=== PATIENT | male | born 1985 | race Hispanic/Latino ===

== ENCOUNTER 2023-03-25 23:03 | Inpatient (IN) | payer OTHER ==
[~2023-03-25] VITALS: Ht 172.7 cm; Wt 101.7 kg
[2023-03-25 23:57] LABS: BASOPHILS # (AUTO) 0.05 K/uL (0.00-0.20); BASOPHILS % (AUTO) 0.4 % (0.0-5.0); EOSINOPHILS # (AUTO) 0.22 K/uL (0.00-0.70); EOSINOPHILS % (AUTO) 1.9 % (0.0-8.0); HEMATOCRIT 42.7 % (42-54); IMMATURE GRANULOCYTE ABSOLUTE 0.12 K/uL (0-1); LYMPHOCYTES # (AUTO) 1.8 K/uL (1.0-4.8); MEAN CORPUSCULAR HEMOGLOBIN 31.2 pg (27.0-33.0); MEAN CORPUSCULAR HGB CONC 35.6 g/dL (32.0-36.0); MEAN CORPUSCULAR VOLUME 87.7 fL (79-99); MONOCYTES % (AUTO) 8.1 % (3.0-13.0); NEUTROPHILS # (AUTO) 8.7 K/uL (1.8-7.7); NEUTROPHILS % (AUTO) 73.6 % (40.0-77.0); PLATELET COUNT (AUTO) 261 K/uL (130-400); RED BLOOD CELL COUNT(AUTO) 4.87 MIL/uL (4.50-6.20); RED CELL DISTRIBUTION WIDTH 12.1 % (11.0-15.5); WHITE BLOOD COUNT (AUTO) 11.8 K/uL (4.8-10.8)
[2023-03-26 00:07] LABS: INR 0.93 (0.85-1.15); PROTHROMBIN TIME 10.1 SEC (9.6-11.6)
[2023-03-26 00:09] LABS: PARTIAL THROMBOPLASTIN TIME 26.1 SEC (26.3-35.5)
[2023-03-26 00:40] LABS: APPEARANCE,URINE CLEAR (CLEAR); BILIRUBIN,URINE NEGATIVE (NEGATIVE); COLOR,URINE LIGHT-YELLOW (YELLOW); GLUCOSE, URINE (UA) >=1000 mg/dL (NEGATIVE); KETONES,URINE NEGATIVE (NEGATIVE); LEUKOCYTE ESTERASE ,URINE NEGATIVE Leu/uL (NEGATIVE); NITRATE,URINE NEGATIVE (NEGATIVE); OCCULT BLOOD,URINE NEGATIVE (NEGATIVE); PH,URINE 6.5 (5.0-8.0); PROTEIN,URINE NEGATIVE (NEGATIVE); UROBILINOGEN,URINE 3 mg/dL (0.2-1.0)
[2023-03-26 00:41] LABS: ALBUMIN 3.6 g/dL (3.5-5.0); BILIRUBIN,TOTAL 0.9 mg/dL (0.2-1.0); CREATININE 1.1 mg/dL (0.5-1.5); POTASSIUM 3.7 mmol/L (3.5-5.1); TOTAL PROTEIN, SERUM 7.4 g/dL (6.0-8.3)
[2023-03-26 00:47] LABS: ADD UA MICROSCOPIC YES
[2023-03-26 00:57] LABS: BACTERIA,URINE None Seen /HPF (None Seen); RBC,URINE 0-1 /HPF (0-1); SQUAMOUS EPITHELIAL CELL,UR None Seen /HPF (0-2); WBC,URINE 0-1 /HPF (0-1)
[2023-03-26] MEDS ORDERED: MORPHINE 4 MG SYG IVP ONE (02:00)
[2023-03-26] MEDS ORDERED: VANCOMYCIN KIT 1 GM/250 ML IV.KIT IV ONE (02:00)
[2023-03-26] MEDS ORDERED: MORPHINE 2 MG SYG ONE (02:10)
[2023-03-26] MEDS ORDERED: VANCOMYCIN PROTOCOL PER PHARMACY IV PRN (02:30)
[2023-03-26] MEDS ORDERED: ACETAMINOPHEN 325 MG TAB PO PRN ×2 (02:30)
[2023-03-26] MEDS ORDERED: LACTULOSE 20 GM/30 ML UDCUP PO PRN (02:30)
[2023-03-26] MEDS: CEFEPIME HCL 2 GM VIAL IVPB SCH ×3 (03:30→18:18)
[2023-03-26] MEDS: 0.9%NACL 1000ML 1,000 ML IV SCH ×3 (03:30→22:34)
[2023-03-26] MEDS: INSULIN HUMULIN R 100 UNIT/ML 3ML SQ SCH ×4 (07:30→19:10)
[2023-03-26] MEDS: FAMOTIDINE 20MG TAB PO SCH ×2 (10:21→19:06)
[2023-03-26] MEDS: MORPHINE 2 MG SYG IV PRN ×2 (11:09→18:01)
[2023-03-26] MEDS: VANCOMYCIN 1.5 GM/250 ML BAG 250 ML IV SCH (14:49)
[2023-03-26] MEDS: ONDANSETRON 4MG INJ IV PRN (18:01)
[2023-03-26] MEDS ORDERED: IOHEXOL-350 75 ML VIAL IV ONE (20:22)
[2023-03-26 20:50] VITALS: BP 139/84; PULSE 106; RESP 20
[2023-03-26] MEDS: NAPROXEN 500 MG TABLET PO SCH (21:02)
[2023-03-26 22:00] VITALS: O2SAT 100
[2023-03-27] VITALS (8 sets, daily range): BP systolic 117–140; BP diastolic 75–94; PULSE 89–97; RESP 18–20; O2SAT 97
[2023-03-27] MEDS: CEFEPIME HCL 2 GM VIAL IVPB SCH ×3 (02:20→18:15)
[2023-03-27] MEDS: VANCOMYCIN 1.5 GM/250 ML BAG 250 ML IV SCH (03:00)
[2023-03-27] MEDS: MORPHINE 2 MG SYG IV PRN ×3 (05:54→18:15)
[2023-03-27] MEDS: INSULIN HUMULIN R 100 UNIT/ML 3ML SQ SCH ×4 (07:30→20:58)
[2023-03-27] MEDS: 0.9%NACL 1000ML 1,000 ML IV SCH ×2 (08:48→20:43)
[2023-03-27] MEDS: NAPROXEN 500 MG TABLET PO SCH ×2 (08:49→20:39)
[2023-03-27] MEDS: FAMOTIDINE 20MG TAB PO SCH ×2 (08:49→20:39)
[2023-03-27] MEDS: VANCOMYCIN 2GM/500 ML BAG 500 ML IV SCH (16:22)
[2023-03-28] MEDS: CEFEPIME HCL 2 GM VIAL IVPB SCH ×3 (02:23→18:56)
[2023-03-28] MEDS: VANCOMYCIN 2GM/500 ML BAG 500 ML IV SCH ×2 (03:16→16:08)
[2023-03-28 03:35] VITALS: BP 123/76; PULSE 87; RESP 16
[2023-03-28] MEDS: 0.9%NACL 1000ML 1,000 ML IV SCH ×2 (04:28→14:30)
[2023-03-28 05:26] LABS: BASOPHILS # (AUTO) 0.04 K/uL (0.00-0.20); BASOPHILS % (AUTO) 0.4 % (0.0-5.0); EOSINOPHILS # (AUTO) 0.39 K/uL (0.00-0.70); EOSINOPHILS % (AUTO) 4.3 % (0.0-8.0); HEMATOCRIT 37.2 % (42-54); IMMATURE GRANULOCYTE ABSOLUTE 0.11 K/uL (0-1); LYMPHOCYTES # (AUTO) 1.7 K/uL (1.0-4.8); LYMPHOCYTES % (AUTO) 18.8 % (21.0-51.0); MEAN CORPUSCULAR HEMOGLOBIN 31.3 pg (27.0-33.0); MEAN CORPUSCULAR HGB CONC 36.6 g/dL (32.0-36.0); MEAN CORPUSCULAR VOLUME 85.7 fL (79-99); MONOCYTES # (AUTO) 0.8 K/uL (0.1-1.0); MONOCYTES % (AUTO) 8.6 % (3.0-13.0); NEUTROPHILS % (AUTO) 66.7 % (40.0-77.0); PLATELET COUNT (AUTO) 251 K/uL (130-400); RED BLOOD CELL COUNT(AUTO) 4.34 MIL/uL (4.50-6.20); RED CELL DISTRIBUTION WIDTH 11.9 % (11.0-15.5)
[2023-03-28 05:33] LABS: HEMOGLOBIN A1C 10.7 % (4.0-6.0)
[2023-03-28 06:04] LABS: ALBUMIN 2.9 g/dL (3.5-5.0); BILIRUBIN,TOTAL 0.6 mg/dL (0.2-1.0); CREATININE 0.9 mg/dL (0.5-1.5); MAGNESIUM 1.7 mg/dL (1.80-2.40); POTASSIUM 3.8 mmol/L (3.5-5.1); TOTAL PROTEIN, SERUM 6.2 g/dL (6.0-8.3)
[2023-03-28] MEDS: INSULIN HUMULIN R 100 UNIT/ML 3ML SQ SCH ×4 (06:23→20:42)
[2023-03-28] MEDS ORDERED: METF-444 PO (07:21)
[2023-03-28] MEDS ORDERED: AMOX1TAB16 PO (07:21)
[2023-03-28] MEDS ORDERED: GLIM4TAB36 PO (07:21)
[2023-03-28 08:00] VITALS: BP 133/76; PULSE 98; RESP 20
[2023-03-28] MEDS: NAPROXEN 500 MG TABLET PO SCH ×2 (08:26→20:39)
[2023-03-28] MEDS: MORPHINE 2 MG SYG IV PRN (08:35)
[2023-03-28] MEDS: FAMOTIDINE 20MG TAB PO SCH ×2 (10:31→20:39)
[2023-03-28 12:00] VITALS: BP 133/81; PULSE 83; RESP 20
[2023-03-28 16:00] VITALS: BP 152/94; PULSE 83; RESP 18
[2023-03-28 20:00] VITALS: BP 156/91; PULSE 91; RESP 20; O2SAT 100
[2023-03-28 23:32] VITALS: BP 141/78; PULSE 83; RESP 19
[2023-03-29] VITALS (31 sets, daily range): BP systolic 85–170; BP diastolic 35–97; PULSE 71–102; RESP 12–20; O2SAT 97–100
[2023-03-29] MEDS: 0.9%NACL 1000ML 1,000 ML IV SCH (00:30)
[2023-03-29] MEDS: CEFEPIME HCL 2 GM VIAL IVPB SCH ×3 (02:16→19:27)
[2023-03-29 05:00] LABS: SARS-CoV-2, RNA, NAAT NEGATIVE SARS CoV-2 (NEGATIVE)
[2023-03-29] MEDS: MORPHINE 2 MG SYG IV PRN (06:16)
[2023-03-29] MEDS: INSULIN HUMULIN R 100 UNIT/ML 3ML SQ SCH ×4 (06:20→20:49)
[2023-03-29] MEDS: NAPROXEN 500 MG TABLET PO SCH ×2 (08:48→20:48)
[2023-03-29] MEDS: VANCOMYCIN 1.5 GM/250 ML BAG 250 ML IV SCH ×2 (08:49→17:44)
[2023-03-29] MEDS: FAMOTIDINE 20MG TAB PO SCH ×2 (09:00→20:48)
[2023-03-29] MEDS ORDERED: MIDAZOLAM HCL 1 MG/ML 2ML VIAL ONE (14:29)
[2023-03-29] MEDS ORDERED: LIDOCAINE PF 100MG/5ML (2%) SYRINGE 5ML ONE (14:29)
[2023-03-29] MEDS ORDERED: FENTANYL CITRATE PF 50 MCG/1 ML 2ML VIAL ONE ×2 (14:30→15:03)
[2023-03-29] MEDS ORDERED: PROPOFOL 10 MG/ML 20ML VIAL IV ONE (14:30)
[2023-03-29] MEDS ORDERED: KETOROLAC 30MG VIAL (30MG/ML) ONE (15:02)
[2023-03-29] MEDS ORDERED: ONDANSETRON 4MG INJ ONE (15:02)
[2023-03-29] MEDS ORDERED: CEFAZOLIN SODIUM 1 GM VIAL ONE (15:15)
[2023-03-29] MEDS ORDERED: CEFAZOLIN SODIUM 1 GM VIAL IVPB ONE (15:15)
[2023-03-29] MEDS ORDERED: MEPERIDINE-PF 25 MG/ML SYG ONE (16:35)
[2023-03-29] MEDS: ONDANSETRON 4MG INJ IV PRN (17:42)
[2023-03-30] VITALS (8 sets, daily range): BP systolic 123–145; BP diastolic 71–88; PULSE 76–86; RESP 20; O2SAT 97–99
[2023-03-30] MEDS: VANCOMYCIN 1.5 GM/250 ML BAG 250 ML IV SCH ×4 (00:50→23:07)
[2023-03-30] MEDS: CEFEPIME HCL 2 GM VIAL IVPB SCH ×3 (02:24→18:31)
[2023-03-30 04:50] LABS: BASOPHILS # (AUTO) 0.04 K/uL (0.00-0.20); BASOPHILS % (AUTO) 0.4 % (0.0-5.0); EOSINOPHILS # (AUTO) 0.35 K/uL (0.00-0.70); EOSINOPHILS % (AUTO) 3.3 % (0.0-8.0); HEMATOCRIT 35.6 % (42-54); IMMATURE GRANULOCYTE ABSOLUTE 0.18 K/uL (0-1); LYMPHOCYTES # (AUTO) 1.9 K/uL (1.0-4.8); LYMPHOCYTES % (AUTO) 18.3 % (21.0-51.0); MEAN CORPUSCULAR HGB CONC 36.8 g/dL (32.0-36.0); MEAN CORPUSCULAR VOLUME 84.2 fL (79-99); MONOCYTES # (AUTO) 0.8 K/uL (0.1-1.0); MONOCYTES % (AUTO) 7.6 % (3.0-13.0); NEUTROPHILS # (AUTO) 7.3 K/uL (1.8-7.7); NEUTROPHILS % (AUTO) 68.7 % (40.0-77.0); PLATELET COUNT (AUTO) 249 K/uL (130-400); RED BLOOD CELL COUNT(AUTO) 4.23 MIL/uL (4.50-6.20); RED CELL DISTRIBUTION WIDTH 11.9 % (11.0-15.5); WHITE BLOOD COUNT (AUTO) 10.6 K/uL (4.8-10.8)
[2023-03-30 05:10] LABS: CREATININE 0.9 mg/dL (0.5-1.5); MAGNESIUM 1.8 mg/dL (1.80-2.40); POTASSIUM 3.2 mmol/L (3.5-5.1)
[2023-03-30] MEDS: INSULIN HUMULIN R 100 UNIT/ML 3ML SQ SCH ×4 (06:33→21:31)
[2023-03-30] MEDS: FAMOTIDINE 20MG TAB PO SCH ×2 (09:01→21:29)
[2023-03-30] MEDS: NAPROXEN 500 MG TABLET PO SCH ×2 (09:01→21:29)
[2023-03-30] MEDS ORDERED: POTASSIUM CHLORIDE 20MEQ/100ML 100 ML IV PRN (11:30)
[2023-03-30] MEDS ORDERED: POTASSIUM CHLORIDE 10% ELIXIR 20 MEQ/15 ML UDCUP PO PRN (11:30)
[2023-03-30] MEDS: KCL 20 MEQ ERTAB PO PRN (11:43)
[2023-03-31] MEDS: VANCOMYCIN 1.5 GM/250 ML BAG 250 ML IV SCH ×2 (07:00→17:51)
[2023-03-31] MEDS: INSULIN HUMULIN R 100 UNIT/ML 3ML SQ SCH ×4 (07:30→21:18)
[2023-03-31 08:00] VITALS: BP 139/78; PULSE 74; RESP 17; O2SAT 99
[2023-03-31] MEDS: FAMOTIDINE 20MG TAB PO SCH ×2 (09:00→21:10)
[2023-03-31] MEDS: NAPROXEN 500 MG TABLET PO SCH ×2 (09:00→21:10)
[2023-03-31 10:29] LABS: CREATININE 0.9 mg/dL (0.5-1.5); MAGNESIUM 1.8 mg/dL (1.80-2.40); POTASSIUM 3.7 mmol/L (3.5-5.1)
[2023-03-31] MEDS: CEFEPIME HCL 2 GM VIAL IVPB SCH ×2 (10:53→21:10)
[2023-03-31 12:00] VITALS: BP 144/84; PULSE 81; RESP 18
[2023-03-31 16:00] VITALS: BP 141/78; PULSE 78; RESP 16
[2023-03-31 16:42] LABS: BASOPHILS # (AUTO) 0.07 K/uL (0.00-0.20); BASOPHILS % (AUTO) 0.8 % (0.0-5.0); EOSINOPHILS # (AUTO) 0.58 K/uL (0.00-0.70); EOSINOPHILS % (AUTO) 6.3 % (0.0-8.0); HEMATOCRIT 40.8 % (42-54); IMMATURE GRANULOCYTE ABSOLUTE 0.34 K/uL (0-1); LYMPHOCYTES # (AUTO) 2.4 K/uL (1.0-4.8); LYMPHOCYTES % (AUTO) 25.6 % (21.0-51.0); MEAN CORPUSCULAR HEMOGLOBIN 31.1 pg (27.0-33.0); MEAN CORPUSCULAR HGB CONC 36.3 g/dL (32.0-36.0); MEAN CORPUSCULAR VOLUME 85.7 fL (79-99); MONOCYTES # (AUTO) 0.9 K/uL (0.1-1.0); MONOCYTES % (AUTO) 9.6 % (3.0-13.0); PLATELET COUNT (AUTO) 250 K/uL (130-400); RED BLOOD CELL COUNT(AUTO) 4.76 MIL/uL (4.50-6.20); RED CELL DISTRIBUTION WIDTH 11.9 % (11.0-15.5); WHITE BLOOD COUNT (AUTO) 9.3 K/uL (4.8-10.8)
[2023-03-31] MEDS ORDERED: MORPHINE 2 MG SYG ONE (17:04)
[2023-03-31] MEDS: MORPHINE 2 MG SYG IVP PRN (17:05)
[2023-03-31 20:00] VITALS: BP 146/78; PULSE 90; RESP 19
[2023-04-01] VITALS (8 sets, daily range): BP systolic 121–142; BP diastolic 71–92; PULSE 75–97; RESP 18–20; O2SAT 100
[2023-04-01] MEDS: CEFEPIME HCL 2 GM VIAL IVPB SCH ×3 (01:48→18:07)
[2023-04-01] MEDS: VANCOMYCIN 1.5 GM/250 ML BAG 250 ML IV SCH ×2 (02:55→10:30)
[2023-04-01 04:59] LABS: BASOPHILS # (AUTO) 0.05 K/uL (0.00-0.20); BASOPHILS % (AUTO) 0.6 % (0.0-5.0); EOSINOPHILS # (AUTO) 0.44 K/uL (0.00-0.70); EOSINOPHILS % (AUTO) 5.6 % (0.0-8.0); LYMPHOCYTES # (AUTO) 1.8 K/uL (1.0-4.8); LYMPHOCYTES % (AUTO) 23.1 % (21.0-51.0); MEAN CORPUSCULAR HEMOGLOBIN 30.6 pg (27.0-33.0); MEAN CORPUSCULAR VOLUME 84.9 fL (79-99); MONOCYTES # (AUTO) 0.7 K/uL (0.1-1.0); MONOCYTES % (AUTO) 8.4 % (3.0-13.0); NEUTROPHILS # (AUTO) 4.7 K/uL (1.8-7.7); NEUTROPHILS % (AUTO) 59.7 % (40.0-77.0); PLATELET COUNT (AUTO) 285 K/uL (130-400); RED BLOOD CELL COUNT(AUTO) 4.71 MIL/uL (4.50-6.20); RED CELL DISTRIBUTION WIDTH 11.9 % (11.0-15.5); WHITE BLOOD COUNT (AUTO) 7.8 K/uL (4.8-10.8)
[2023-04-01 05:12] LABS: CREATININE 0.9 mg/dL (0.5-1.5); MAGNESIUM 1.8 mg/dL (1.80-2.40); POTASSIUM 3.7 mmol/L (3.5-5.1)
[2023-04-01] MEDS: INSULIN HUMULIN R 100 UNIT/ML 3ML SQ SCH ×4 (06:43→20:15)
[2023-04-01] MEDS: FAMOTIDINE 20MG TAB PO SCH ×2 (09:03→20:13)
[2023-04-01] MEDS: NAPROXEN 500 MG TABLET PO SCH ×2 (09:03→20:13)
[2023-04-01] MEDS: KCL 20 MEQ ERTAB PO PRN (09:04)
[2023-04-02] VITALS (8 sets, daily range): BP systolic 119–150; BP diastolic 67–84; PULSE 72–99; RESP 16–20; O2SAT 100
[2023-04-02] MEDS: CEFEPIME HCL 2 GM VIAL IVPB SCH ×3 (01:50→16:54)
[2023-04-02 05:27] LABS: BASOPHILS # (AUTO) 0.07 K/uL (0.00-0.20); BASOPHILS % (AUTO) 0.6 % (0.0-5.0); EOSINOPHILS # (AUTO) 0.56 K/uL (0.00-0.70); EOSINOPHILS % (AUTO) 5.2 % (0.0-8.0); HEMATOCRIT 41.3 % (42-54); LYMPHOCYTES # (AUTO) 2.2 K/uL (1.0-4.8); LYMPHOCYTES % (AUTO) 20.2 % (21.0-51.0); MEAN CORPUSCULAR HEMOGLOBIN 30.5 pg (27.0-33.0); MEAN CORPUSCULAR HGB CONC 36.1 g/dL (32.0-36.0); MEAN CORPUSCULAR VOLUME 84.5 fL (79-99); MONOCYTES # (AUTO) 1.1 K/uL (0.1-1.0); NEUTROPHILS # (AUTO) 6.5 K/uL (1.8-7.7); NEUTROPHILS % (AUTO) 60.3 % (40.0-77.0); PLATELET COUNT (AUTO) 267 K/uL (130-400); RED BLOOD CELL COUNT(AUTO) 4.89 MIL/uL (4.50-6.20); RED CELL DISTRIBUTION WIDTH 11.9 % (11.0-15.5); WHITE BLOOD COUNT (AUTO) 10.8 K/uL (4.8-10.8)
[2023-04-02 05:48] LABS: MAGNESIUM 1.7 mg/dL (1.80-2.40); POTASSIUM 4.1 mmol/L (3.5-5.1); VANCOMYCIN LEVEL 7.4 mcg/mL (18.0-26.0)
[2023-04-02] MEDS: INSULIN HUMULIN R 100 UNIT/ML 3ML SQ SCH ×4 (06:18→20:19)
[2023-04-02] MEDS: FAMOTIDINE 20MG TAB PO SCH ×2 (08:44→20:19)
[2023-04-02] MEDS: NAPROXEN 500 MG TABLET PO SCH ×2 (08:44→20:19)
[2023-04-02] MEDS: METRONIDAZOLE 500 MG TABLET PO SCH ×2 (16:00→23:56)
[2023-04-03] VITALS (8 sets, daily range): BP systolic 117–138; BP diastolic 69–88; PULSE 80–91; RESP 16–19; O2SAT 97–99
[2023-04-03] MEDS: CEFEPIME HCL 2 GM VIAL IVPB SCH ×3 (02:05→18:27)
[2023-04-03 05:12] LABS: BASOPHILS # (AUTO) 0.05 K/uL (0.00-0.20); BASOPHILS % (AUTO) 0.5 % (0.0-5.0); EOSINOPHILS # (AUTO) 0.46 K/uL (0.00-0.70); EOSINOPHILS % (AUTO) 4.8 % (0.0-8.0); HEMATOCRIT 42.3 % (42-54); IMMATURE GRANULOCYTE ABSOLUTE 0.23 K/uL (0-1); LYMPHOCYTES # (AUTO) 2.2 K/uL (1.0-4.8); LYMPHOCYTES % (AUTO) 22.6 % (21.0-51.0); MEAN CORPUSCULAR HGB CONC 35.7 g/dL (32.0-36.0); MEAN CORPUSCULAR VOLUME 86.9 fL (79-99); MONOCYTES # (AUTO) 0.7 K/uL (0.1-1.0); MONOCYTES % (AUTO) 7.6 % (3.0-13.0); NEUTROPHILS % (AUTO) 62.1 % (40.0-77.0); PLATELET COUNT (AUTO) 288 K/uL (130-400); RED BLOOD CELL COUNT(AUTO) 4.87 MIL/uL (4.50-6.20); RED CELL DISTRIBUTION WIDTH 12.1 % (11.0-15.5); WHITE BLOOD COUNT (AUTO) 9.6 K/uL (4.8-10.8)
[2023-04-03 05:33] LABS: ALBUMIN 3.3 g/dL (3.5-5.0); BILIRUBIN,TOTAL 0.8 mg/dL (0.2-1.0); POTASSIUM 4.2 mmol/L (3.5-5.1); TOTAL PROTEIN, SERUM 7.2 g/dL (6.0-8.3)
[2023-04-03] MEDS: INSULIN HUMULIN R 100 UNIT/ML 3ML SQ SCH ×4 (06:38→20:25)
[2023-04-03] MEDS: METRONIDAZOLE 500 MG TABLET PO SCH ×2 (06:38→16:33)
[2023-04-03] MEDS: NAPROXEN 500 MG TABLET PO SCH ×2 (09:03→20:23)
[2023-04-03] MEDS: FAMOTIDINE 20MG TAB PO SCH ×2 (09:03→20:23)
[2023-04-04] MEDS: METRONIDAZOLE 500 MG TABLET PO SCH ×3 (00:41→15:35)
[2023-04-04] MEDS: CEFEPIME HCL 2 GM VIAL IVPB SCH ×2 (02:34→10:48)
[2023-04-04 03:25] VITALS: BP 130/80; PULSE 78; RESP 16
[2023-04-04 05:43] LABS: BASOPHILS # (AUTO) 0.04 K/uL (0.00-0.20); BASOPHILS % (AUTO) 0.5 % (0.0-5.0); EOSINOPHILS # (AUTO) 0.36 K/uL (0.00-0.70); EOSINOPHILS % (AUTO) 4.1 % (0.0-8.0); HEMATOCRIT 40.7 % (42-54); LYMPHOCYTES # (AUTO) 2.1 K/uL (1.0-4.8); LYMPHOCYTES % (AUTO) 23.3 % (21.0-51.0); MEAN CORPUSCULAR HEMOGLOBIN 30.7 pg (27.0-33.0); MEAN CORPUSCULAR HGB CONC 35.1 g/dL (32.0-36.0); MEAN CORPUSCULAR VOLUME 87.3 fL (79-99); MONOCYTES # (AUTO) 0.7 K/uL (0.1-1.0); MONOCYTES % (AUTO) 8.1 % (3.0-13.0); NEUTROPHILS # (AUTO) 5.5 K/uL (1.8-7.7); NEUTROPHILS % (AUTO) 61.7 % (40.0-77.0); PLATELET COUNT (AUTO) 262 K/uL (130-400); RED BLOOD CELL COUNT(AUTO) 4.66 MIL/uL (4.50-6.20); RED CELL DISTRIBUTION WIDTH 12.1 % (11.0-15.5); WHITE BLOOD COUNT (AUTO) 8.9 K/uL (4.8-10.8)
[2023-04-04 06:03] LABS: ALBUMIN 3.2 g/dL (3.5-5.0); BILIRUBIN,TOTAL 0.6 mg/dL (0.2-1.0); CREATININE 0.8 mg/dL (0.5-1.5); TOTAL PROTEIN, SERUM 6.9 g/dL (6.0-8.3)
[2023-04-04] MEDS: INSULIN HUMULIN R 100 UNIT/ML 3ML SQ SCH ×3 (06:27→16:15)
[2023-04-04 08:00] VITALS: BP 138/79; PULSE 77; RESP 16
[2023-04-04 08:10] VITALS: O2SAT 98
[2023-04-04] MEDS: FAMOTIDINE 20MG TAB PO SCH (08:30)
[2023-04-04] MEDS: NAPROXEN 500 MG TABLET PO SCH (08:30)
[2023-04-04 12:00] VITALS: BP 132/76; PULSE 83; RESP 16
[2023-04-04 16:00] VITALS: BP 127/71; PULSE 76; RESP 16
[2023-04-04] MEDS: MORPHINE 2 MG SYG IVP PRN (17:04)
== END 2023-04-04 20:00 | disposition home or self-care (01) | DRG 717 ==
LOC: EDH 23:03 → EDHIP 23:04 → 3CH 03-26 20:50
PROVIDERS: ADMIT Hospitalist; ATTEND Hospitalist
PROC: 0V950ZZ Drainage of Scrotum, Open Approach (ICD-10-PCS; principal; 2023-03-29 14:49)
DX: N49.2 Inflammatory disorders of scrotum (principal); E87.1 Hypo-osmolality and hyponatremia; L02.512 Cutaneous abscess of left hand; Z20.822 Contact with and (suspected) exposure to COVID-19; E11.65 Type 2 diabetes mellitus with hyperglycemia; E66.01 Morbid (severe) obesity due to excess calories; Z87.891 Personal history of nicotine dependence; Z91.199 Patient's noncompliance with other medical treatment and regimen due to unspecified reason; Z68.34 Body mass index [BMI] 34.0-34.9, adult
CPT/HCPCS: 36415; 74178; 76870; 80048; 80053; 80202; 81001; 82550; 82948; 83036; 83605; 83735; 84484; 85025; 85610; 85730; 87040; 87070; 87076; 87088; 87635; 97039; A4344; G0378; J0690; J0692; J1815; J1885; J2001; J2175; J2250; J2270; J2405; J2704; J3010; J3370; J7030; Q9967; A4649; A6210; A9272; G8980-CH; G8983-CI; J3490

== ENCOUNTER → 2023-04-07 | Outpatient (CLI) | payer OTHER ==
[~2023-04-07] MED LIST: AMOX1TAB16 PO; GLIM4TAB36 PO; HONEY 1 APPL/ML TUBE TP ONE; LIDOCAINE HCL 4% LTA SOL 4 ML VIAL TP ONE; METF-444 PO
== END | disposition home or self-care (01) ==
LOC: WHH 13:48
PROVIDERS: ATTEND Nurse Practitioner Family
DX: T81.89XA Other complications of procedures, not elsewhere classified, initial encounter (principal); S31.30XA Unspecified open wound of scrotum and testes, initial encounter; N45.4 Abscess of epididymis or testis; E11.65 Type 2 diabetes mellitus with hyperglycemia; G47.30 Sleep apnea, unspecified; E66.9 Obesity, unspecified; Z68.33 Body mass index [BMI] 33.0-33.9, adult; Z87.891 Personal history of nicotine dependence; Z79.899 Other long term (current) drug therapy; X58.XXXA Exposure to other specified factors, initial encounter; Y93.89 Activity, other specified; Y99.8 Other external cause status; Y83.8 Other surgical procedures as the cause of abnormal reaction of the patient, or of later complication, without mention of misadventure at the time of the procedure; Y92.89 Other specified places as the place of occurrence of the external cause
CPT/HCPCS: 99215; A4450

== ENCOUNTER → 2023-04-14 | Outpatient (CLI) | payer OTHER ==
[~2023-04-14] MED LIST changes: -HONEY 1 APPL/ML TUBE TP ONE
== END | disposition home or self-care (01) ==
LOC: WHH 10:07
PROVIDERS: ATTEND Nurse Practitioner Family
DX: T81.89XD Other complications of procedures, not elsewhere classified, subsequent encounter (principal); S31.30XD Unspecified open wound of scrotum and testes, subsequent encounter; E11.65 Type 2 diabetes mellitus with hyperglycemia; N45.4 Abscess of epididymis or testis; G47.30 Sleep apnea, unspecified; E66.9 Obesity, unspecified; Z68.33 Body mass index [BMI] 33.0-33.9, adult; Z87.891 Personal history of nicotine dependence; Z79.899 Other long term (current) drug therapy; X58.XXXD Exposure to other specified factors, subsequent encounter; Y83.8 Other surgical procedures as the cause of abnormal reaction of the patient, or of later complication, without mention of misadventure at the time of the procedure
CPT/HCPCS: 99214